=== PATIENT | female | born 1970 | race Caucasian/White ===

== ENCOUNTER 2017-01-23 09:46 | Emergency (ER) | payer BC ==
[~2017-01-23] VITALS: Ht 157.5 cm; Wt 100.0 kg
[~2017-01-23 09:46] MED LIST: BUPR100CR PO; LEVO.125 PO; PROT40TA PO; RANI150T PO; ZOLP10TA3 PO
[2017-01-23 09:47] VITALS: BP 138/96; PULSE 100; RESP 20; TEMP 98.6; O2SAT 97
[2017-01-23] MEDS ORDERED: SODIUM CHLOR 0.9% 1000 ML INJ 1,000 ML IV SCH (10:52)
--- NOTE | 2017-01-23 10:59 | PD ---
HPI Chief Complaint: Abdominal Pain Time Seen by Provider: 10:42 Travel History International Travel<30 days: No Contact w/Intl Traveler<30days: No Traveled to known affect area: No History of Present Illness HPI 46 years old female complains of right upper quadrant abdominal pain the right flank pain. Patient states that she has intermittent right flank pain and right upper quadrant abdominal pain for the past several months. Patient was seen by personal physician Dr. Hayward and referred to Dr. Shrestha, surgeon for consultation. Patient was seen by Dr. Shrestha and was advised to have gastric emptying study and other study prior to cholecystectomy. Patient states that she has increasing right upper quadrant abdominal pain and right flank pain since yesterday. Patient states that she had persistent severe nausea and intermittent vomiting since yesterday. Patient denies any headache. Patient denies any chest pain or shortness of breath. Patient denies any dysuria or frequency. Patient denies any fever chills. PFSH Past Medical History Thyroid Disease: Yes (NIURKA'S) ?: Not Tubal Ligation: Yes Past Surgical History Gynecologic Surgery: Yes (leep) Other Surgery: Yes (NECK) Social History Alcohol Use: No (rarely) Tobacco Use: Yes (1 ppd) Substance Use: No Allergies-Medications (Allergen,Severity, Reaction): Coded Allergies: No Known Allergies (Unverified , 01/23/17) Reported Meds & Prescriptions Reported Meds & Active Scripts Active Protonix (Pantoprazole Sodium) 40 Mg Tab 40 Mg PO DAILY Wellbutrin SR 12 HR (Bupropion HCl) 100 Mg Tab 100 Mg PO Q12HR Synthroid (Levothyroxine Sodium) 125 Mcg Tab 125 Mcg PO DAILY Zolpidem (Zolpidem Tartrate) 10 Mg Tab 10 Mg PO HS PRN Review of Systems General / Constitutional: No: Fever Eyes: No: Visual changes HENT: No: Headaches Cardiovascular: No: Chest Pain or Discomfort Respiratory: No: Shortness of Breath Gastrointestinal: Positive: Nausea, Vomiting, Abdominal Pain Genitourinary: No: Dysuria Musculoskeletal: No: Pain Skin: No Rash Neurologic: No: Weakness Psychiatric: No: Depression Endocrine: No: Polydipsia Hematologic/Lymphatic: No: Easy Bruising Physical Exam Narrative GENERAL: Well-nourished, well-developed patient. SKIN: Focused skin assessment warm/dry. HEAD: Normocephalic. EYES: No scleral icterus. No injection or drainage. NECK: Supple, trachea midline. No JVD or lymphadenopathy. CARDIOVASCULAR: Regular rate and rhythm without murmurs, gallops, or rubs. RESPIRATORY: Breath sounds equal bilaterally. No accessory muscle use. GASTROINTESTINAL: Abdomen soft, nondistended. Patient has moderate tenderness on palpation right upper quadrant of the abdomen. No rebound tenderness. No mass. MUSCULOSKELETAL: No cyanosis, or edema. BACK: Nontender without obvious deformity. No CVA tenderness. Neurologic exam normal. Data Data Last Documented VS Vital Signs Date Time Temp Pulse Resp B/P Pulse Ox O2 Delivery O2 Flow Rate FiO2 01/23/17 11:06 Room Air 01/23/17 09:47 98.6 100 20 138/96 97 Orders Complete Blood Count With Diff (01/23/17 10:52) Comprehensive Metabolic Panel (01/23/17 10:52) Lipase (01/23/17 10:52) Prothrombin Time / Inr (Pt) (01/23/17 10:52) Act Partial Throm Time (Ptt) (01/23/17 10:52) Urinalysis - C+S If Indicated (01/23/17 10:52) Iv Access Insert/Monitor (01/23/17 10:52) Ecg Monitoring (01/23/17 10:52) Oximetry (01/23/17 10:52) Morphine Inj (Morphine Inj) (01/23/17 11:00) Ondansetron Inj (Zofran Inj) (01/23/17 11:00) Pantoprazole Inj (Protonix Inj) (01/23/17 11:00) Sodium Chlor 0.9% 1000 Ml Inj (Ns 1000 M (01/23/17 10:52) Electrocardiogram (01/23/17 10:52) Chest, Single Ap (01/23/17 10:52) Us Abdomen Gallbladder (01/23/17 12:33) Labs Laboratory Tests Test 01/23/17 01/23/17 01/23/17 11:00 11:05 11:40 Urine Color YELLOW Urine Turbidity HAZY Urine pH 6.5 Urine Specific [place] 1.016 Urine Protein 30 mg/dL Urine Glucose (UA) NEG mg/dL Urine Ketones NEG mg/dL Urine Occult Blood NEG Urine Nitrite NEG Urine Bilirubin NEG Urine Urobilinogen LESS THAN 2.0 MG/DL Urine Leukocyte Esterase NEG Urine RBC LESS THAN 1 /hpf Urine WBC 1 /hpf Urine Squamous Epithelial 6 /hpf Cells Urine Bacteria RARE /hpf Urine Mucus FEW /lpf Microscopic Urinalysis Comment CULT NOT INDICATED Prothrombin Time 10.2 SEC Prothromb Time International 0.9 RATIO Ratio Activated Partial 25.2 SEC Thromboplast Time Sodium Level 135 MEQ/L Potassium Level 3.9 MEQ/L Chloride Level 100 MEQ/L Carbon Dioxide Level 25.8 MEQ/L Anion Gap 9 MEQ/L Blood Urea Nitrogen 8 MG/DL Creatinine 0.62 MG/DL Estimat Glomerular Filtration 104 ML/MIN Rate Random Glucose 87 MG/DL Calcium Level 8.6 MG/DL Total Bilirubin 0.2 MG/DL Aspartate Amino Transf 32 U/L (AST/SGOT) Alanine Aminotransferase 41 U/L (ALT/SGPT) Alkaline Phosphatase 101 U/L Total Protein 8.6 GM/DL Albumin 2.9 GM/DL Lipase 179 U/L White Blood Count 7.5 TH/MM3 Red Blood Count 4.11 MIL/MM3 Hemoglobin 12.4 GM/DL Hematocrit 36.5 % Mean Corpuscular Volume 88.9 FL Mean Corpuscular Hemoglobin 30.2 PG Mean Corpuscular Hemoglobin 33.9 % Concent Red Cell Distribution Width 17.4 % Platelet Count 202 TH/MM3 Mean Platelet Volume 8.4 FL Neutrophils (%) (Auto) 61.9 % Lymphocytes (%) (Auto) 24.5 % Monocytes (%) (Auto) 10.6 % Eosinophils (%) (Auto) 2.6 % Basophils (%) (Auto) 0.4 % Neutrophils # (Auto) 4.6 TH/MM3 Lymphocytes # (Auto) 1.8 TH/MM3 Monocytes # (Auto) 0.8 TH/MM3 Eosinophils # (Auto) 0.2 TH/MM3 Basophils # (Auto) 0.0 TH/MM3 CBC Comment DIFF FINAL Differential Comment [facility] Medical Decision Making Medical Screen Exam Complete: Yes Emergency Medical Condition: Yes Interpretation(s) 12:24 PM. CBC within normal limit. CMP within normal limit. UA negative. Last Impressions Gall Bladder Ultrasound 01/23/17 9533 Signed Impressions: Service Date/Time: Monday, January 23, 2017 13:56 - CONCLUSION: Gallstones without evidence of acute cholecystitis. Fatty liver. Could not visualize the portal vein. Rafa Reynolds MD Chest X-Ray 01/23/17 1052 Signed Impressions: Service Date/Time: Monday, January 23, 2017 10:54 - CONCLUSION: No acute disease. Contreras Bernal MD Differential Diagnosis Differential diagnosis including gastritis, PUD, pancreatitis, cholecystitis, colitis, UTI, pyelonephritis, nephrolithiasis. Narrative Course 46 years old female with right-sided upper quadrant abdominal pain. History of cholelithiasis. Normal saline solution 1 25 cc an hour. Protonix 40 mg IV. Morphine 2 mg IV. Zofran 4 g IV. I spoke with Dr. Shrestha. Patient was advised to follow-up with him in the office for possible scheduled cholecystectomy. Diagnosis Primary Impression: Cholelithiasis Qualified Code: K80.20 - Calculus of gallbladder without cholecystitis without obstruction Additional Impression: Abdominal pain Qualified Code: R10.11 - Right upper quadrant abdominal pain Patient Instructions: General Instructions Additional Instructions: Follow-up with Dr. Shrestha in a.m. Take medications as directed. Return immediately if worsening condition, fever, persistent vomiting. Med/Other Pt SpecificInfo: Prescription(s) given Scripts Ondansetron Odt (Zofran Odt)4 Mg Tab4 Mg SL Q6HR PRN (Nausea/Vomiting) #10 TAB Prov:Clarence Romeo MD 01/23/17 Hydrocodone-Acetaminophen ([place])5-325 mg Tab1 Tab PO Q6H PRN (PAIN) #20 TAB Prov:Clarence Romeo MD 01/23/17 Disposition: 01 DISCHARGE HOME Condition: Stable Clarence Romeo MD Jan 23, 2017 10:59
[2017-01-23] MEDS ORDERED: ONDANSETRON HCL 4 MG/2 ML VIAL IVP ONE (11:00)
[2017-01-23] MEDS ORDERED: PANTOPRAZOLE SODIUM 40 MG VIAL IVP ONE (11:00)
[2017-01-23] MEDS ORDERED: MORPHINE SULFATE 4 MG/ML INJ IV PUSH ONE (11:00)
[2017-01-23 11:20] LABS: BACTERIA, URINE RARE /hpf; BLOOD, URINE NEG (NEG); COMMENT (UR) CULT NOT INDICATED; CULTURE IF INDICATED CULT NOT INDICATED; GLUCOSE,URINE NEG (NEG); KETONE, URINE NEG (NEG); MUCUS URINE FEW /lpf (OCC); NITRITE,URINE NEG (NEG); PH, URINE 6.5 (5.0-8.5); SQUAMOUS EPITHELIAL CELL URINE 6 /hpf (0-5); URINE COLOR YELLOW (YELLW/STRAW)
[2017-01-23 11:29] LABS: APTT (PATIENT) 25.2 SEC (24.3-30.1); INTERNATIONAL NORMALIZED RATIO 0.9 RATIO; PROTHROMBIN TIME - PATIENT 10.2 SEC (9.8-11.6)
[2017-01-23 11:39] LABS: ALT (GPT) 41 U/L (10-53); ANION GAP 9 MEQ/L (5-15); AST (GOT) 32 U/L (15-37); BICARBONATE 25.8 MEQ/L (21.0-32.0); BLOOD UREA NITROGEN 8 MG/DL (7-18); CHLORIDE 100 MEQ/L (98-107); GLOMERULAR FILTRATION RATE 104 ML/MIN (>89); POTASSIUM 3.9 MEQ/L (3.5-5.1); SODIUM (NA) 135 MEQ/L (136-145)
[2017-01-23 11:41] LABS: ALKALINE PHOSPHATASE 101 U/L (45-117); TOTAL BILIRUBIN ADULT 0.2 MG/DL (0.2-1.0)
[2017-01-23 11:51] LABS: AUTOMATED NEUTROPHIL # 4.6 TH/MM3 (1.8-7.7); BASOPHIL % 0.4 % (0.0-2.0); EOSINOPHIL # 0.2 TH/MM3 (0-0.4); EOSINOPHIL % 2.6 % (0.0-4.0); HEMATOCRIT 36.5 % (35.0-46.0); HEMO FLAGS DIFF FINAL; LYMPH % 24.5 % (9.0-44.0); LYMPHOCYTE # 1.8 TH/MM3 (1.0-4.8); MEAN CELL VOLUME 88.9 FL (80.0-100.0); MEAN CORPUSCULAR HEMOGLOBIN 30.2 PG (27.0-34.0); MEAN CORPUSCULAR HGB CONC 33.9 % (32.0-36.0); MONO % 10.6 % (0.0-8.0); NEUT % 61.9 % (16.0-70.0); PLATELET COUNT 202 TH/MM3 (150-450); RED BLOOD COUNT 4.11 MIL/MM3 (4.00-5.30); RED CELL DISTRIBUTION WIDTH 17.4 % (11.6-17.2); WHITE BLOOD COUNT 7.5 TH/MM3 (4.0-11.0)
--- NOTE | 2017-01-23 12:22 | RADRPT ---
EXAM DATE/TIME: 01/23/2017 10:54 [facility] COMPARISON: No previous studies available for comparison. INDICATIONS : Right flank pain. MEDICAL HISTORY : Gallbladder problems. SURGICAL HISTORY : None. ENCOUNTER: Initial ACUITY: 2 days PAIN SCORE: 8/10 LOCATION: Right chest flank FINDINGS: A single view of the chest demonstrates the lungs to be symmetrically aerated without evidence of mas s, infiltrate or effusion. The cardiomediastinal contours are unremarkable. Osseous structures are intact. CONCLUSION: No acute disease. Contreras Bernal MD on January 23, 2017 at 12:20 Board Certified Radiologist. This report was verified electronically.
--- NOTE | 2017-01-23 14:44 | RADRPT ---
EXAM DATE/TIME: 01/23/2017 13:56 [facility] COMPARISON: No previous studies available for comparison. EXTERNAL COMPARISON : [facility], Ultrasound abdomen, January 01, 2017 INDICATIONS : Right upper quadrant pain. MEDICAL HISTORY : Hashimotos disease. SURGICAL HISTORY : Tubal ligation. Leep surgery. Neck surgery. ENCOUNTER: Initial ACUITY: 1 month PAIN SCORE: 4/10 LOCATION: Right upper quadrant MEASUREMENTS: LIVER: 18.1 cm length COMMON DUCT: 3 mm RIGHT KIDNEY: 11.8 x 4.7 x 5.9 cm FINDINGS: LIVER: Increased echotexture without focal lesion or ductal dilatation. Could not visualize the portal vein . COMMON DUCT: No intraluminal mass or stone visualized. GALLBLADDER: Contains numerous stones, however demonstrates no wall thickening or pericholecystic fluid. PANCREAS: The visualized portions are within normal limits. RIGHT KIDNEY: No evidence of hydronephrosis, stone, or mass. CONCLUSION: Gallstones without evidence of acute cholecystitis. Fatty liver. Could not visualize the portal vein. Rafa Reynolds MD on January 23, 2017 at 14:41 Board Certified Radiologist. This report was verified electronically.
[2017-01-23] MEDS ORDERED: ZOFR4TAB3 SL (15:28)
[2017-01-23] MEDS ORDERED: NORC5TAB PO (15:28)
--- NOTE | 2017-01-24 15:06 | EKG ---
Date Performed: 01/23/2017 Time Performed: 11:07:35 PTAGE: 46 years EKG: Sinus rhythm BORDERLINE LEFT AXIS DEVIATION BORDERLINE ECG NO PREVIOUS TRACING DOCTOR: Danni Barrera Interpretating Date/Time 01/24/2017 14:59:25
[2017-01-25] MEDS ORDERED: OXYC1TAB63 PO (15:02)
[2017-01-31] MEDS ORDERED: NICO21DI2 T-DERMAL (08:46)
[2017-01-31] MEDS ORDERED: OXYC1TAB63 PO (08:47)
[2017-01-31] MEDS ORDERED: PERI8.6T PO (08:49)
== END 2017-01-23 15:41 | disposition home or self-care (01) ==
LOC: NEPC 09:46
DX: K80.80 Other cholelithiasis without obstruction (principal); K76.0 Fatty (change of) liver, not elsewhere classified; E06.3 Autoimmune thyroiditis; F17.200 Nicotine dependence, unspecified, uncomplicated; Z79.899 Other long term (current) drug therapy
CPT/HCPCS: 71010; 76705; 80053; 81001; 83690; 85025; 85610; 85730; 93005; 96374; 96375; 99285; C9113; J2270; J2405; J7030

== ENCOUNTER → 2017-01-25 | Day surgery (SDC) | payer BC ==
[~2017-01-25] VITALS: Ht 157.5 cm; Wt 99.8 kg
[~2017-01-25] MED LIST changes: +*morphine SULFATE 8 MG/ML PERIprocedure ONLY ONE; +ACETAMINOPHEN 1000 MG/100 ML VIAL IV SCH; +BUPIVACAINE/EPINEPHRINE 0.25% 50 ML VIAL ONE; +CHLORHEXIDINE GLUCONATE 2 % 1 PACK (2 CLOTHS) TOPICAL PRN; +DO NOT ADM ANY ANTICOAGULANT DRUGS PRN; +FAMOTIDINE 20 MG/2 ML VIAL ONE; +INSULIN HUMAN REGULAR 1,000 UNITS/10 ML VIAL SQ PRN; +LACTATED RINGER'S 1000 ML INJ 1,000 ML IV ONE; +LACTATED RINGER'S 1000 ML IV PRN; +METOPROLOL TARTRATE 25 MG TAB PO PRN; +MIDAZOLAM HCL 2 MG/2 ML VIAL ONE; +MORPHINE SULFATE 4 MG/ML INJ IV PRN; +NICO21DI2 T-DERMAL; +NORC5TAB PO; +ONDANSETRON HCL 4 MG/2 ML VIAL IV PRN; +ONDANSETRON HCL 4 MG/2 ML VIAL IV PUSH ONE; +OXYC1TAB63 PO; +PERI8.6T PO; +POVIDONE IODINE 5% (ANTISEPSIS KIT) 4 APPLICATIONS EACH NARE PRN; +PROPOFOL 200 MG/20 ML AMP IV ONE; -RANI150T PO; +SODIUM CHLORID 0.9% 500 ML IV PRN; +SODIUM CHLORIDE 0.9% FLUSH 10 ML FLUSH IV FLUSH PRN; +SODIUM CHLORIDE 0.9% FLUSH 10 ML FLUSH IV FLUSH SCH; +SUGAMMADEX SODIUM 200 MG/2 ML VIAL IV PUSH ONE; +ZOFR4TAB3 SL; +ceFAZolin 2 GM PREMIX 50 ML IV SCH; +fentaNYL CITRATE 250 MCG/5 ML AMP ONE; +metroNIDAZOLE 500 MG INJ 100 ML IV SCH; +oxyCODONE/ACETAMINOPHEN 5 MG/325 MG TAB ONE; +oxyCODONE/ACETAMINOPHEN 5 MG/325 MG TAB PO PRN
[2017-01-25 11:38] VITALS: BP 138/91; PULSE 102; RESP 16; TEMP 98.2; O2SAT 94
--- NOTE | 2017-01-25 15:04 | PD.OP ---
cc: Nick Shrestha MD Operative Report Date of Surgery: Jan 25, 2017 Preoperative Diagnosis: (1) Symptomatic cholelithiasis Postoperative Diagnosis: (1) Chronic cholecystitis Procedure: Laparoscopic cholecystectomy Anesthesia: [place]ROE Surgeon: Nick Shrestha Corporate Investigator(s): Teresa ASHER Operation and Findings: Complications: None apparent EBL: 10 cc Operative findings: The gallbladder appeared chronically inflamed. Procedure in detail: The patient was taken to the operating room and placed in the supine position. General endotracheal anesthesia was induced. The abdomen was prepped and draped in usual sterile fashion and a surgical timeout was performed to verify correct patient procedure and site. Appropriate perioperative antibiotics were administered. Local anesthetic was injected in the skin and subcutaneous tissue superior to the umbilicus and a 5 mm incision performed. The abdomen was entered using the Optiview 5 mm trocar with direct laparoscopic visualization. The abdomen was then insufflated to 15 mmHg with CO2 gas which the patient tolerated well. Next a 12 mm port was placed in the epigastrium and two 5 mm ports in the right upper quadrant and right lateral abdomen. The patient was placed in reverse Trendelenburg position and turned slightly to the left. Attention was turned to the right upper quadrant and the dome of the gallbladder was grasped and retracted cephalad. The infundibulum was retracted laterally to expose Calot's triangle. Blunt dissection and judicious use of electrocautery was used to expose the cystic duct and the cystic artery directly entering the gallbladder. Two clips were placed proximally on each of these structures and one distally and they were transected. The gallbladder was then removed from the liver bed using electrocautery. Hemostasis was achieved. The gallbladder was then removed from the abdomen using an Endo Catch bag. The clips were in place on the cystic duct and cystic artery stumps with no bleeding or bile leakage. At this point, the abdomen was allowed to desufflate and trochars were removed. The fascia at the 12 mm port site was closed with 0 Vicryl suture. Skin was closed with subcuticular 4-0 Monocryl as well as Dermabond. The patient tolerated the procedure well and was extubated and taken to PACU in stable condition. All sponge and instrument counts were correct. Nick Shrestha MD Jan 25, 2017 15:04
[2017-01-25 17:30] VITALS: BP 151/85; PULSE 72; RESP 18; TEMP 98; O2SAT 95
== END | disposition home or self-care (01) ==
LOC: HSDC 11:03
PROVIDERS: ATTEND Surgery
DX: K80.10 Calculus of gallbladder with chronic cholecystitis without obstruction (principal); K21.9 Gastro-esophageal reflux disease without esophagitis; E66.01 Morbid (severe) obesity due to excess calories; Z68.41 Body mass index [BMI] 40.0-44.9, adult; F17.200 Nicotine dependence, unspecified, uncomplicated
CPT/HCPCS: 00790; 47562; 88304; J0131; J0690; J2250; J2270; J2405; J3010; J7120

== ENCOUNTER 2017-07-19 08:28 | Observation (INO) | payer BC ==
[~2017-07-19] VITALS: Ht 157.5 cm; Wt 96.8 kg
[~2017-07-19 08:28] MED LIST changes: -*morphine SULFATE 8 MG/ML PERIprocedure ONLY ONE; -ACETAMINOPHEN 1000 MG/100 ML VIAL IV SCH; -BUPIVACAINE/EPINEPHRINE 0.25% 50 ML VIAL ONE; -BUPR100CR PO; -CHLORHEXIDINE GLUCONATE 2 % 1 PACK (2 CLOTHS) TOPICAL PRN; -DO NOT ADM ANY ANTICOAGULANT DRUGS PRN; -FAMOTIDINE 20 MG/2 ML VIAL ONE; +GELATIN 12 MM/7 MM FOAM ONE; -INSULIN HUMAN REGULAR 1,000 UNITS/10 ML VIAL SQ PRN; -LACTATED RINGER'S 1000 ML INJ 1,000 ML IV ONE; -LACTATED RINGER'S 1000 ML IV PRN; -METOPROLOL TARTRATE 25 MG TAB PO PRN; -MIDAZOLAM HCL 2 MG/2 ML VIAL ONE; -MORPHINE SULFATE 4 MG/ML INJ IV PRN; -NICO21DI2 T-DERMAL; -NORC5TAB PO; -ONDANSETRON HCL 4 MG/2 ML VIAL IV PRN; -ONDANSETRON HCL 4 MG/2 ML VIAL IV PUSH ONE; -OXYC1TAB63 PO; -PERI8.6T PO; -POVIDONE IODINE 5% (ANTISEPSIS KIT) 4 APPLICATIONS EACH NARE PRN; -PROPOFOL 200 MG/20 ML AMP IV ONE; -PROT40TA PO; +RANI150T PO; -SODIUM CHLORID 0.9% 500 ML IV PRN; -SODIUM CHLORIDE 0.9% FLUSH 10 ML FLUSH IV FLUSH PRN; -SODIUM CHLORIDE 0.9% FLUSH 10 ML FLUSH IV FLUSH SCH; -SUGAMMADEX SODIUM 200 MG/2 ML VIAL IV PUSH ONE; +THROMBIN (TOPICAL) 5,000 UNIT VIAL ONE; -ZOFR4TAB3 SL; -ceFAZolin 2 GM PREMIX 50 ML IV SCH; -fentaNYL CITRATE 250 MCG/5 ML AMP ONE; -metroNIDAZOLE 500 MG INJ 100 ML IV SCH; -oxyCODONE/ACETAMINOPHEN 5 MG/325 MG TAB ONE; -oxyCODONE/ACETAMINOPHEN 5 MG/325 MG TAB PO PRN
[2017-07-19] MEDS ORDERED: POVIDONE IODINE 5% (ANTISEPSIS KIT) 4 APPLICATIONS EACH NARE PRN (09:00)
[2017-07-19] MEDS ORDERED: ceFAZolin 1,000 MG/NS 100 ML IV SCH ×2 (09:00)
[2017-07-19] MEDS ORDERED: LACTATED RINGER'S 1000 ML IV PRN (09:00)
[2017-07-19] MEDS ORDERED: SODIUM CHLORID 0.9% 500 ML IV PRN (09:00)
[2017-07-19] MEDS ORDERED: ACETAMINOPHEN 1000 MG/100 ML 100 ML IV SCH (09:00)
[2017-07-19] MEDS ORDERED: CHLORHEXIDINE GLUCONATE 2 % 1 PACK (2 CLOTHS) TOPICAL PRN (09:00)
[2017-07-19] MEDS ORDERED: VANCOMYCIN 1000 MG/NS 250 ML ON-CALL IV SCH ×2 (09:00)
[2017-07-19] MEDS ORDERED: METOPROLOL TARTRATE 25 MG TAB PO PRN (09:00)
[2017-07-19 09:53] LABS: AUTOMATED NEUTROPHIL # 8.4 TH/MM3 (1.8-7.7); BASOPHIL % 0.3 % (0.0-2.0); EOSINOPHIL # 0.2 TH/MM3 (0-0.4); EOSINOPHIL % 1.6 % (0.0-4.0); HEMATOCRIT 34.6 % (35.0-46.0); HEMOGLOBIN 11.5 GM/DL (11.6-15.3); LYMPH % 17.7 % (9.0-44.0); LYMPHOCYTE # 2.1 TH/MM3 (1.0-4.8); MEAN CELL VOLUME 83.5 FL (80.0-100.0); MEAN CORPUSCULAR HEMOGLOBIN 27.6 PG (27.0-34.0); MEAN CORPUSCULAR HGB CONC 33.1 % (32.0-36.0); MONOCYTE # 1.1 TH/MM3 (0-0.9); NEUT % 71.4 % (16.0-70.0); PLATELET COUNT 228 TH/MM3 (150-450); RED BLOOD COUNT 4.15 MIL/MM3 (4.00-5.30); RED CELL DISTRIBUTION WIDTH 19.2 % (11.6-17.2); WHITE BLOOD COUNT 11.8 TH/MM3 (4.0-11.0)
[2017-07-19] MEDS ORDERED: DEXMEDETOMIDINE HCL 200 MCG/2 ML VIAL ONE (11:16)
[2017-07-19] MEDS ORDERED: HYDROmorphone HCL PF 2 MG/ML VIAL ONE (11:16)
[2017-07-19] MEDS ORDERED: LIDOCAINE HCL 1% PF 5 ML SYRINGE OTHER ONE (12:00)
[2017-07-19] MEDS ORDERED: SUCCINYLCHOLINE CHLORIDE 200 MG/10 ML VIAL IV ONE (12:00)
[2017-07-19] MEDS ORDERED: DEXAMETHASONE SOD PHOS 4 MG/ML VIAL IV ONE (12:00)
[2017-07-19] MEDS ORDERED: LACTATED RINGER'S 1000 ML INJ 2,000 ML IV ONE (12:00)
[2017-07-19] MEDS ORDERED: PHENYLEPH/NS 1000 MCG/10 ML SYR IV ONE (12:00)
[2017-07-19] MEDS ORDERED: ONDANSETRON HCL 4 MG/2 ML VIAL IV PUSH ONE (12:00)
[2017-07-19] MEDS ORDERED: PHENYLEPHRINE HCL 10 MG/ML VIAL IV ONE (12:00)
[2017-07-19] MEDS ORDERED: PROPOFOL 200 MG/20 ML AMP IV ONE (12:00)
[2017-07-19] MEDS ORDERED: NALOXONE HCL 0.4 MG/ML AMP ONE (12:42)
[2017-07-19] MEDS ORDERED: DO NOT ADM ANY ANTICOAGULANT DRUGS PRN (14:38)
[2017-07-19] MEDS ORDERED: MIDAZOLAM HCL 2 MG/2 ML VIAL ONE (14:52)
[2017-07-19] MEDS ORDERED: HYDR-3288 PO (15:22)
[2017-07-19] MEDS ORDERED: *morphine SULFATE 10 MG/ML PERIprocedure ONLY ONE (15:51)
--- NOTE | 2017-07-19 16:24 | EKG ---
Date Performed: 07/19/2017 Time Performed: 08:56:58 PTAGE: 46 years EKG: Sinus tachycardia. Left axis deviation Poor R wave progression - probable normal variant Dwayne rderline ECG PREVIOUS TRACING : 01/23/2017 11.07 Since previous tracing, no significant change noted DOCTOR: Stephen Gurrola Interpretating Date/Time 07/19/2017 16:23:15
[2017-07-19] MEDS: MORPHINE SULFATE 2 MG/ML INJ IV PRN ×2 (17:59→22:28)
[2017-07-19] MEDS: ONDANSETRON HCL 4 MG/2 ML VIAL IV PUSH PRN (17:59)
[2017-07-19 20:57] VITALS: BP 119/67; PULSE 88; RESP 18; TEMP 96.4; O2SAT 96
[2017-07-20 00:47] VITALS: BP 139/73; PULSE 94; RESP 18; TEMP 96.4; O2SAT 94
[2017-07-20] MEDS: ONDANSETRON HCL 4 MG/2 ML VIAL IV PUSH PRN ×3 (01:30→14:36)
[2017-07-20] MEDS: MORPHINE SULFATE 2 MG/ML INJ IV PRN (03:09)
[2017-07-20 04:00] VITALS: BP 126/66; PULSE 84; RESP 20; TEMP 96.8; O2SAT 93
[2017-07-20 08:00] VITALS: BP 107/64; PULSE 80; RESP 16; TEMP 96.8; O2SAT 95
[2017-07-20] MEDS: ACETAMINOPHEN/HYDROcodone 325 MG/5 MG TAB PO PRN ×2 (08:21→14:31)
[2017-07-20 10:56] VITALS: O2SAT 95
[2017-07-20 12:00] VITALS: BP 115/69; PULSE 83; RESP 16; TEMP 96.4; O2SAT 92
--- NOTE | 2017-07-20 14:23 | MP ---
cc: FLO KRUEGER M.D. DATE OF SURGERY: 07/20/2017. 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 OPERATIVE PROCEDURE PERFORMED: Total thyroidectomy Autotransplantation parathyroid glands x 2 right sternocleidomastoid muscle SURGEON: Flo Krueger MD. DIRECTOR HOUSEKEEPING: ANGIE Rasheed. ANESTHESIA: General endotracheal anesthesia. ESTIMATED BLOOD LOSS: 200 mL. FLUIDS: 1500 mL crystalloid. COMPLICATIONS: None. DRAINS: None. SPECIMEN: Thyroid going to pathology. DESCRIPTION OF THE PROCEDURE IN DETAIL: The patient was taken to the operating room and placed on the operating table in the supine position. After an adequate level of general endotracheal anesthesia was achieved, the neck was placed in a slightly hyperextended position. It should be noted that during intubation, the right vocal cord was slightly less mobile than the left, and the patient did have hoarseness preoperatively. The neck was then sterilely prepped and draped with both arms tucked. Time-out was taken confirming the correct patient, site and procedure to be performed. The skin was incised and dissection carried down with electrocautery through the platysma to the precervical fascia. A large precervical vein was dissected, ligated and divided with silk suture. The strap muscles were divided in the midline and retracted laterally. Attention was turned to the left side first as this was slightly smaller. Dissection was carried out superiorly and inferiorly to divide the thyroid vessels right at the gland. This was accomplished with the harmonic scalpel. This allowed full rotation of the gland medially. The left upper parathyroid gland was identified and swept away. The lower parathyroid gland was identified but it was not clear whether this gland was intact and functional and thus this was removed and minced into 1 mm cubes and placed into saline. The thyroid gland was further rotated medially and a relatively large inflammatory process was noted. The left recurrent laryngeal nerve was identified with the neuro monitoring probe. Care was taken to keep all dissection and all electrocautery away from this area. The gland was further rotated medially and then split in the midline at the isthmus to allow for removal of the left lobe of the thyroid first, to allow for easier mobilization of the right lobe. The gland was dissected off of the trachea at this point and care was taken to dissect it off of the cricopharyngeus muscle was minimal use of electrocautery. When this was accomplished, the left gland was passed off in formalin with what appeared to be a lymph node from the pretracheal region. Attention was then turned to the right side. The right gland was much larger and the inferior vessels were addressed first. These were divided with the harmonic scalpel and the gland was then rotated more medially. An inferior parathyroid gland was tentatively identified and after further manipulation, this appeared to have questionable viability. This was minced up and placed into the saline as well. Upon rotation of the gland more medially, superior parathyroid gland was noted and this was able to be swept off of the thyroid gland and preserved. The superior thyroid vessels were identified and divided with the harmonic scalpel right on the gland itself. The gland extended a relatively long distance superiorly, laterally and inferiorly. The gland was able to be mobilized out with minimal bleeding. When this had been accomplished, the superior gland was delivered into the wound. The isthmus was mobilized off of the trachea anteriorly and this allowed for more medial mobilization of the gland inferiorly as well. While mobilizing inferiorly, the right recurrent laryngeal nerve was identified and preserved along its entire length. Care was taken to keep dissection away from the nerve with no use of the harmonic scalpel near the nerve. The gland was further rotated medially and dissected free from the surrounding structures including freeing of the gland up from the trachea. The specimen was then passed off the table and appeared to be 6 x 10 cm in dimension. The left lobe of the thyroid was approximately 4 x 8 cm. When these had been completely removed and passed off the table, attention was turned to the neck. The minced up parathyroid tissue was placed into the right sternocleidomastoid muscle and marked with silk sutures. The muscle fibers were spread with a Metzenbaum scissors and the small cubes were placed into the individual pockets. After oversewing with silk suture, the neck was addressed. This was irrigated and all irrigation aspirated. With hemostasis achieved surgicel powder was placed into the neck on both sides. The strap muscles were closed in the midline with interrupted 3-0 Vicryl suture and the platysma re-closed with interrupted 3 -0 Vicryl suture as well. The skin was closed with 5-0 Prolene in a running subcuticular fashion. The wound was dressed with Steri-Strips. Upon extubation, both vocal cords appeared to be mobile and symmetrical. The patient was taken back to the recovery room in stable condition. Sponge, needle and instrument counts were reported be correct. MD CARLOS ALBERTO Payan/JCGeraldine /6:01 PM /2:05 PM [email or web address]
[2017-07-20 14:33] LABS: CALCIUM 7.8 MG/DL (8.5-10.1)
[2017-07-20 14:43] LABS: CALCIUM-PROTEIN CORRECTED 7.4 MG/DL (8.5-10.1)
[2017-07-20] MEDS ORDERED: TRAM50TA PO (15:17)
--- NOTE | 2017-07-20 15:21 | HHI.PR ---
Subjective Subjective Notes Uneventful night Voice back to baseline Tolerated some solid food Objective Vitals/I&O Vital Signs Date Time Temp Pulse Resp B/P (MAP) Pulse Ox O2 Delivery O2 Flow Rate FiO2 07/20/17 12:00 96.4 83 16 115/69 (84) 92 07/20/17 10:56 Nasal Cannula 2.00 Labs Laboratory Tests Test 07/20/17 14:05 Calcium Level 7.8 Protein Corrected Calcium 7.4 Total Protein 8.0 Lungs: Clear Narrative Exam No swelling in neck Steri strips with minimal drainage Protein corrected Ca++ 7.4, but no symptoms Advised to take tums/drink milk Discharge with tramadol; lortab makes her throw up F/U one week my office Flo Krueger MD Jul 20, 2017 15:21
--- NOTE | 2017-07-20 15:23 | HHI.DS ---
Discharge Summary Admission Date Jul 19, 2017 at 17:04 Admitting Diagnosis Symptomatic Librado's thyroiditis Procedures Total thyroidectomy 07/19/17 CBC/BMP: 07/19/17 0925 Significant Findings Laboratory Tests Test 07/19/17 09:25 07/20/17 14:05 White Blood Count 11.8 TH/MM3 (4.0-11.0) Hemoglobin 11.5 GM/DL (11.6-15.3) Hematocrit 34.6 % (35.0-46.0) Red Cell Distribution Width 19.2 % (11.6-17.2) Neutrophils (%) (Auto) 71.4 % (16.0-70.0) Monocytes (%) (Auto) 9.0 % (0.0-8.0) Neutrophils # (Auto) 8.4 TH/MM3 (1.8-7.7) Monocytes # (Auto) 1.1 TH/MM3 (0-0.9) Calcium Level 7.8 MG/DL (8.5-10.1) Protein Corrected Calcium 7.4 MG/DL (8.5-10.1) PE at Discharge No swelling in neck Steri strips with minimal drainage Protein corrected Ca++ 7.4, but no symptoms Advised to take tums/drink milk Discharge with tramadol; lortab makes her throw up F/U one week my office Hospital Course Patient underwent above named procedure 07/19; no problems overnight. Tolerating diet; good sats; pain control with oral meds. Pt Condition on Discharge: Good Discharge Disposition: Discharge Home Discharge Instructions DIET: Follow Instructions for: As Tolerated, No Restrictions Activities you can perform: Shower Only-No Bath Activities to Avoid: Strenuous Activity Flo Krueger MD Jul 20, 2017 15:23
== END 2017-07-20 16:16 | disposition home or self-care (01) ==
LOC: HSDC 08:28 → HSDI 17:04 → N07A 17:17
PROVIDERS: ADMIT Surgery Trauma Surgery; ATTEND Surgery Trauma Surgery
DX: E06.3 Autoimmune thyroiditis (principal); R47.02 Dysphasia; R00.0 Tachycardia, unspecified
CPT/HCPCS: 00320; 60240; 60512; 84155; 85025; 88305; 88307; 93005; 94762; 96374; 96375; 96376; G0378; J0131; J0330; J0690; J1100; J1170; J2250; J2270; J2310; J2370; J2405; J3010; J3370; J7050; J7120

== ENCOUNTER 2017-07-21 22:58 | Emergency (ER) | payer BC ==
[~2017-07-21] VITALS: Ht 157.5 cm; Wt 95.0 kg
[~2017-07-21 22:58] MED LIST changes: -GELATIN 12 MM/7 MM FOAM ONE; -THROMBIN (TOPICAL) 5,000 UNIT VIAL ONE; +TRAM50TA PO
[2017-07-21 22:59] VITALS: BP 178/89; PULSE 87; RESP 16; TEMP 98.9; O2SAT 96
[2017-07-21 23:43] VITALS: BP 155/83; PULSE 79; RESP 20; O2SAT 95
[2017-07-22 00:29] LABS: AUTOMATED NEUTROPHIL # 4.9 TH/MM3 (1.8-7.7); BASOPHIL # 0.1 TH/MM3 (0-0.2); BASOPHIL % 0.6 % (0.0-2.0); EOSINOPHIL # 0.4 TH/MM3 (0-0.4); EOSINOPHIL % 4.1 % (0.0-4.0); HEMATOCRIT 31.6 % (35.0-46.0); HEMOGLOBIN 10.7 GM/DL (11.6-15.3); LYMPH % 30.5 % (9.0-44.0); LYMPHOCYTE # 2.8 TH/MM3 (1.0-4.8); MEAN CELL VOLUME 84.1 FL (80.0-100.0); MEAN CORPUSCULAR HEMOGLOBIN 28.6 PG (27.0-34.0); MEAN PLATELET VOLUME 7.9 FL (7.0-11.0); MONO % 11.2 % (0.0-8.0); NEUT % 53.6 % (16.0-70.0); PLATELET COUNT 209 TH/MM3 (150-450); RED BLOOD COUNT 3.76 MIL/MM3 (4.00-5.30); RED CELL DISTRIBUTION WIDTH 18.8 % (11.6-17.2); WHITE BLOOD COUNT 9.1 TH/MM3 (4.0-11.0)
[2017-07-22 00:50] LABS: ALBUMIN 2.6 GM/DL (3.4-5.0); ALKALINE PHOSPHATASE 96 U/L (45-117); ALT (GPT) 29 U/L (10-53); AST (GOT) 23 U/L (15-37); BICARBONATE 35.1 MEQ/L (21.0-32.0); BLOOD UREA NITROGEN 12 MG/DL (7-18); CALCIUM 9.7 MG/DL (8.5-10.1); CHLORIDE 100 MEQ/L (98-107); CREATININE 0.59 MG/DL (0.50-1.00); GLOMERULAR FILTRATION RATE 110 ML/MIN (>89); GLUCOSE,RANDOM 102 MG/DL (74-106); MAGNESIUM 1.3 MG/DL (1.5-2.5); SODIUM (NA) 139 MEQ/L (136-145); TOTAL BILIRUBIN ADULT 0.1 MG/DL (0.2-1.0); TOTAL PROTEIN 7.6 GM/DL (6.4-8.2)
--- NOTE | 2017-07-22 01:23 | PD ---
HPI Chief Complaint: Numbness/Tingling Time Seen by Provider: 23:45 Travel History International Travel<30 days: No Contact w/Intl Traveler<30days: No Traveled to known affect area: No History of Present Illness HPI 46 year-old female presents to the emergency department for perioral paresthesias and paresthesias affecting the fingers and toes. Patient had thyroidectomy 07/19/17 was told by her surgeon to come to the emergency department if she developed the symptoms that she may have low calcium patient has been taking calcium supplements at home. Patient denies other concerns or complaints. Patient states wound site looks good has had no fever or chills. PFSH Past Medical History Narrative Medical Thyroidectomy; nursing notes reviewed Cancer: No Cardiovascular Problems: No Diabetes: No Diminished Hearing: No Endocrine: Yes Genitourinary: No Hepatitis: No Hiatal Hernia: No Immune Disorder: No Musculoskeletal: No Neurologic: No Psychiatric: No Reproductive: Yes (tubes tied) Respiratory: No Thyroid Disease: Yes ?: Not Tubal Ligation: Yes Past Surgical History Abdominal Surgery: Yes AICD: No Body Medical Devices: N/A Cardiac Surgery: No Cholecystectomy: Yes Ear Surgery: No Endocrine Surgery: No Eye Surgery: No Genitourinary Surgery: No Gynecologic Surgery: Yes (leep) Joint Replacement: No Oral Surgery: No Pacemaker: No Thoracic Surgery: No Other Surgery: Yes (THYROIDECTOMY) Social History Alcohol Use: No (rarely) Tobacco Use: No Substance Use: No Allergies-Medications (Allergen,Severity, Reaction): Coded Allergies: No Known Allergies (Unverified Adverse Reaction, Unknown, 07/21/17) Reported Meds & Prescriptions Reported Meds & Active Scripts Active Tramadol (Tramadol HCl) 50 Mg Tab 50 Mg PO Q4H PRN Reported Ranitidine (Ranitidine HCl) 150 Mg Tab 150 Mg PO BID Review of Systems Except as stated in HPI: all other systems reviewed are Neg Physical Exam Narrative GENERAL: Well-developed well-nourished obese female in no acute distress no respiratory distress SKIN: Warm and dry. HEAD: Normocephalic. EYES: No scleral icterus. No injection or drainage. ENT: Airway is patent. NECK: Supple, trachea midline. No JVD or lymphadenopathy. Anterior neck area shows dry dressing without redness induration edema ecchymosis drainage or increased warmth. CARDIOVASCULAR: Regular rate and rhythm without murmurs, gallops, or rubs. RESPIRATORY: Breath sounds equal bilaterally. No accessory muscle use. GASTROINTESTINAL: Abdomen soft, non-tender, nondistended. MUSCULOSKELETAL: No cyanosis, or edema. BACK: Nontender without obvious deformity. No CVA tenderness. Data Data Last Documented VS Vital Signs Date Time Temp Pulse Resp B/P (MAP) Pulse Ox O2 Delivery O2 Flow Rate FiO2 07/21/17 23:43 79 20 155/83 (107) 95 Room Air 07/21/17 22:59 98.9 Orders Orders Electrocardiogram (07/21/17 ) Complete Blood Count With Diff (07/21/17 23:45) Comprehensive Metabolic Panel (07/21/17 23:45) Magnesium (Mg) (07/21/17 23:45) Magnesium Oxide (Mag-Ox) (07/22/17 01:30) Ed Discharge Order (07/22/17 01:41) Labs Laboratory Tests Test 07/22/17 00:17 White Blood Count 9.1 TH/MM3 Red Blood Count 3.76 MIL/MM3 Hemoglobin 10.7 GM/DL Hematocrit 31.6 % Mean Corpuscular Volume 84.1 FL Mean Corpuscular Hemoglobin 28.6 PG Mean Corpuscular Hemoglobin Concent 34.0 % Red Cell Distribution Width 18.8 % Platelet Count 209 TH/MM3 Mean Platelet Volume 7.9 FL Neutrophils (%) (Auto) 53.6 % Lymphocytes (%) (Auto) 30.5 % Monocytes (%) (Auto) 11.2 % Eosinophils (%) (Auto) 4.1 % Basophils (%) (Auto) 0.6 % Neutrophils # (Auto) 4.9 TH/MM3 Lymphocytes # (Auto) 2.8 TH/MM3 Monocytes # (Auto) 1.0 TH/MM3 Eosinophils # (Auto) 0.4 TH/MM3 Basophils # (Auto) 0.1 TH/MM3 CBC Comment DIFF FINAL Differential Comment Blood Urea Nitrogen 12 MG/DL Creatinine 0.59 MG/DL Random Glucose 102 MG/DL Total Protein 7.6 GM/DL Albumin 2.6 GM/DL Calcium Level 9.7 MG/DL Magnesium Level 1.3 MG/DL Alkaline Phosphatase 96 U/L Aspartate Amino Transf (AST/SGOT) 23 U/L Alanine Aminotransferase (ALT/SGPT) 29 U/L Total Bilirubin 0.1 MG/DL Sodium Level 139 MEQ/L Potassium Level 4.0 MEQ/L Chloride Level 100 MEQ/L Carbon Dioxide Level 35.1 MEQ/L Anion Gap 4 MEQ/L Estimat Glomerular Filtration Rate 110 ML/MIN MDM Medical Decision Making Medical Screen Exam Complete: Yes Emergency Medical Condition: Yes Medical Record Reviewed: Yes Interpretation(s) EKG: Normal sinus rhythm rate [address] elevation injury pattern or ectopy noted CBC & BMP Diagram 07/22/17 00:17 Total Protein 7.6, Albumin 2.6 L, Calcium Level 9.7 #, Magnesium Level 1.3 L, Alkaline Phosphatase 96, Aspartate Amino Transf (AST/SGOT) 23, Alanine Aminotransferase (ALT/SGPT) 29, Total Bilirubin 0.1 L Vital Signs Date Time Temp Pulse Resp B/P (MAP) Pulse Ox O2 Delivery O2 Flow Rate FiO2 07/21/17 23:43 79 20 155/83 (107) 95 Room Air 07/21/17 22:59 98.9 87 16 178/89 (118) 96 Room Air Differential Diagnosis Hypocalcemia, hypoparathyroidism, hyperventilation Narrative Course IV access obtained specimens collected and sent for resulting EKG performed shows sinus rhythm with no acute injury pattern Calcium is 9.7 magnesium 1.3 patient's calcium is in normal range and patient is stable to be discharged patient given one-time dose of magnesium oxide for mild decreased magnesium Patient encouraged to follow-up with her specialist her primary care provider Diagnosis Primary Impression: Paresthesia Referrals: Flo Krueger MD 1 day call regarding follow up Primary Care Physician 2 days Patient Instructions: General Instructions Additional Instructions: Follow-up with your primary care provider Follow-up with your surgeon call office to schedule follow-up appointment Continue to add potassium and calcium to dietary intake and supplement with Tums Return to the emergency department for a concerns or change in condition Disposition: 01 DISCHARGE HOME Condition: Stable Elisa Kaur MD Jul 22, 2017 01:23
[2017-07-22] MEDS ORDERED: MAGNESIUM OXIDE 400 MG TAB PO ONE (01:30)
--- NOTE | 2017-07-22 15:23 | EKG ---
Date Performed: 07/21/2017 Time Performed: 23:56:25 PTAGE: 46 years EKG: Sinus rhythm WITH SHORT HI INTERVAL Since previous tracing, no significant change noted BORDERLINE ECG PREVIOUS TRACING : 07/19/2017 08.56 DOCTOR: Elder Greene Interpretating Date/Time 07/22/2017 15:23:14
== END 2017-07-22 01:51 | disposition home or self-care (01) ==
LOC: NEPC 22:58
DX: R20.2 Paresthesia of skin (principal); E07.9 Disorder of thyroid, unspecified; Z79.899 Other long term (current) drug therapy
CPT/HCPCS: 80053; 83735; 85025; 93005